=== PATIENT | male | born 1945 ===

== ENCOUNTER 2018-04-06 14:03 | Emergency (ER) | payer OTHER ==
[~2018-04-06] VITALS: Ht 167.6 cm; Wt 59.0 kg
[~2018-04-06 14:03] MED LIST: ALPHA LIPOIC A300 MG; ARTHRITIS PAIN650 MG; ASPIRIN81 M1; DICLOFENAC SODI50 MG PO; ENALAPRIL MALEA10 MG; FISH OIL 1,0001 CA2; FLOVENT DI50 MCG/DIS; GABAPENTIN300 MG; GEMFIBROZIL600 MG; GLIPIZIDE10 MG; GLIPIZIDE5 MG; GLUMETZA1000 MG; METFORMIN HCL1000 MG; METOPROLOL SUCC50 MG; OMEGA-31000 MG; OXYBUTYNIN10 MG/BOTT; PANTOPRAZOLE SO40 MG; RANITIDINE HCL300 MG; SUPER B W/C1 CAP; TAMS0.4C
== END 2018-04-06 21:20 | disposition home or self-care (01) ==
LOC: ER 14:03
DX: J11.1 Influenza due to unidentified influenza virus with other respiratory manifestations (principal); B34.9 Viral infection, unspecified

== ENCOUNTER 2018-09-17 22:45 | Emergency (ER) | payer OTHER ==
[~2018-09-17] VITALS: Ht 167.6 cm; Wt 78.9 kg
[2018-09-18] MEDS ORDERED: PEPCID40 MG PO (05:55)
[2018-09-18] MEDS ORDERED: ZOFRAN ODT4 MG PO (05:55)
== END 2018-09-18 06:08 | disposition home or self-care (01) ==
LOC: ER 22:45
DX: K29.60 Other gastritis without bleeding (principal); E86.0 Dehydration; I95.89 Other hypotension